=== PATIENT | female | born 1980 | race Caucasian/White ===

== ENCOUNTER 2017-08-05 08:36 | Emergency (ER) | payer MEDICAID ==
[2017-08-05 08:50] VITALS: RESP 18
[2017-08-05] MEDS ORDERED: Lidocaine 1%/Epinephrine 1:100000 30 ml vial IJ ONE (09:08)
[2017-08-05] MEDS ORDERED: Lidocaine 2% w Epi 1:100,000 Inj IJ ONE (09:17)
--- NOTE | 2017-08-05 09:28 | C.PDOC ---
History Of Present Illness 37 yr old female presents to the ER with complaints of swelling to the right groin. Patient notes she had a boil to the area 9 months ago and was treated with antibiotics and she self drained it. Patient states it has returned. Patient denies fever, vaginal sores or discharge, abdominal pain or dysuria. Time Seen by Provider: 08/05/17 08:47 Chief Complaint (Nursing): Abnormal Skin Integrity History Per: Patient History/Exam Limitations: no limitations Onset/Duration Of Symptoms: Days Quality Of Symptoms: Painful Past Medical History Reviewed: Historical Data, Nursing Documentation, Vital Signs Vital Signs: Last Vital Signs Temp 98 F 08/05/17 08:48 Pulse 74 08/05/17 08:48 Resp 18 08/05/17 08:48 BP 105/73 08/05/17 08:48 Pulse Ox 99 08/05/17 09:31 - Medical History PMH: Anxiety - [facility] Procedures INJECT STEROID (12/23/13) INJECT/INFUSE NEC (10/22/13) OTHER LOCAL DESTRUC SKIN (12/23/13) REMOVE INT FIX DEVIC NEC (12/23/13) Family History: States: No Known Family Hx - Social History Hx Tobacco Use: No Hx Alcohol Use: No Hx Substance Use: No - Immunization History Hx Tetanus Toxoid Vaccination: No Hx Influenza Vaccination: No Hx Pneumococcal Vaccination: No Review Of Systems Except As Marked, All Systems Reviewed And Found Negative. Constitutional: Negative for: Fever, Chills Genitourinary: Positive for: Other ((+) Area of swelling to the right groin.). Negative for: Dysuria Physical Exam - Physical Exam Appears: Non-toxic, No Acute Distress Skin: Warm, Dry, Other ((+) 2x1cm area of tenderness, erythema and induration with central fluctuance.) Head: Atraumatic, Normacephalic Eye(s): bilateral: Normal Inspection, EOMI Nose: Normal Oral Mucosa: Moist Lymphatic: No Inguinal Node Tenderness Chest: Symmetrical Respiratory: No Accessory Muscle Use Extremity: Normal ROM, No Swelling Neurological/Psych: Oriented x3, Normal Speech ED Course And Treatment O2 Sat by Pulse Oximetry: 99 (RA) Pulse Ox Interpretation: Normal Progress Note: Discussed wound care and to return in 2 days for wound check. - Incision & Drainage Of Abscess Anesthesia: Lidocaine 2%, With Epi Prep Used: Sterile Water, Betadine Procedure: Incised W/Scalpel Blade#: (11), Drained Pus, Irrigated Cavity W/ Saline, Probed To Break Up Loculations, Packed W/Gauze, Cultures Obtained And Sent To Lab Medical Decision Making Medical Decision Making: PLAN: * Clindamycin PO * Motrin PO Disposition - Disposition Disposition: HOME/ ROUTINE Disposition Time: 10:05 Condition: STABLE Additional Instructions: Return in 2 days for wound check. Prescriptions: Clindamycin [Cleocin] 300 mg PO Q6 #28 cap Instructions: Abscess Incision and Drainage (ED) Forms: [employer] (Mozambican) - Clinical Impression Clinical Impression: Incisional abscess - PA / CASE HARDENER / Resident Statement MD/DO has reviewed & agrees with the documentation as recorded. - Scribe Statement The provider has reviewed the documentation as recorded by the Scribe Ema Grimes All medical record entries made by the Scribe were at my direction and personally dictated by me. I have reviewed the chart and agree that the record accurately reflects my personal performance of the history, physical exam, medical decision making, and the department course for this patient. I have also personally directed, reviewed, and agree with the discharge instructions and disposition.
[2017-08-05 10:35] VITALS: BP 115/78; PULSE 63; TEMP 97.9; O2SAT 100
== END 2017-08-05 10:50 | disposition home or self-care (01) ==
LOC: C.ER 08:36
DX: L02.214 Cutaneous abscess of groin (principal)

== ENCOUNTER 2017-08-06 16:01 | Emergency (ER) | payer MEDICAID ==
[2017-08-06 16:06] VITALS: BP 129/84; PULSE 72; RESP 16; TEMP 98.2; O2SAT 99
--- NOTE | 2017-08-06 16:42 | C.PDOC ---
History Of Present Illness 37 yr old female presents to the ER for a wound check, s.p I&D done yesterday to the right groin area. Patient reports the wound continues to drain. Patient has not yet started her antibiotic. Patient denies fever, chills, nausea, vomiting, abdominal pain, diarrhea, back pain, weakness or numbness. Time Seen by Provider: 08/06/17 16:33 Chief Complaint (Nursing): Wound Check History Per: Patient History/Exam Limitations: no limitations Past Medical History Reviewed: Historical Data, Nursing Documentation, Vital Signs Vital Signs: Last Vital Signs Temp 98.2 F 08/06/17 16:04 Pulse 72 08/06/17 16:04 Resp 16 08/06/17 16:04 BP 129/84 08/06/17 16:04 Pulse Ox 99 08/06/17 18:16 - Medical History PMH: Anxiety - [facility] Procedures INJECT STEROID (12/23/13) INJECT/INFUSE NEC (10/22/13) OTHER LOCAL DESTRUC SKIN (12/23/13) REMOVE INT FIX DEVIC NEC (12/23/13) Family History: States: No Known Family Hx - Social History Hx Tobacco Use: No Hx Alcohol Use: No Hx Substance Use: No - Immunization History Hx Tetanus Toxoid Vaccination: No Hx Influenza Vaccination: No Hx Pneumococcal Vaccination: No Review Of Systems Except As Marked, All Systems Reviewed And Found Negative. Constitutional: Negative for: Fever, Chills Gastrointestinal: Negative for: Nausea, Vomiting, Abdominal Pain, Diarrhea Musculoskeletal: Negative for: Back Pain Neurological: Negative for: Weakness, Numbness Physical Exam - Physical Exam Appears: Non-toxic, No Acute Distress Skin: Warm, Dry, No Rash Oral Mucosa: Moist Chest: Symmetrical, No Tenderness Cardiovascular: Rhythm Regular, No Murmur Respiratory: Normal Breath Sounds, No Rales, No Rhonchi, No Stridor, No Wheezing Pelvic: Other ((+) Right groin, packing in place. Mild induration. No errythema. ) Neurological/Psych: Oriented x3, Normal Speech, Normal Motor ED Course And Treatment O2 Sat by Pulse Oximetry: 99 (RA) Pulse Ox Interpretation: Normal Disposition - Disposition Disposition: HOME/ ROUTINE Disposition Time: 16:40 Condition: GOOD Additional Instructions: Thank you for letting us take care of you today. Your provider was Dr. Wheeler. You were treated for a wound check. The emergency medical care you received today was directed at your acute symptoms. If you were prescribed any medication, please fill it and take as directed. It may take several days for your symptoms to resolve. Return to the Emergency Department if your symptoms worsen, do not improve, or if you have any other problems. Please contact your doctor or call one of the physicians/clinics you have been referred to that are listed on the Patient Visit Information form that is included in your discharge packet. Bring any paperwork you were given at discharge with you along with any medications you are taking to your follow up visit. Our treatment cannot replace ongoing medical care by a primary care provider (PCP) outside of the emergency department. Thank you for allowing the [facility] team to be part of your care today. START TAKING THE ANTIBIOTICS NOW. Apply warm compresses to the area as much as possible. Follow up tomorrow for a wound check. Instructions: Abscess (ED) Forms: [employer] (Austrian) - Clinical Impression Clinical Impression: Change of dressing - Scribe Statement The provider has reviewed the documentation as recorded by the Radhaibriya Grimes Provider Attestation: All medical record entries made by the Scribe were at my direction and personally dictated by me. I have reviewed the chart and agree that the record accurately reflects my personal performance of the history, physical exam, medical decision making, and the department course for this patient. I have also personally directed, reviewed, and agree with the discharge instructions and disposition.
== END 2017-08-06 16:51 | disposition home or self-care (01) ==
LOC: C.ER 16:01
DX: Z48.01 Encounter for change or removal of surgical wound dressing (principal)

== ENCOUNTER 2017-08-08 11:43 | Emergency (ER) | payer MEDICAID ==
[2017-08-08 12:07] VITALS: BMI 30.7
[2017-08-08 12:10] VITALS: BP 116/80; RESP 18; TEMP 98
--- NOTE | 2017-08-08 12:42 | C.PDOC ---
History Of Present Illness 37 y/o female presents to ED for wound check. Patient was seen at ED on 08/06/17 and had an I&D to right groin abscess. Patient states she was told to come in 2 days for check up. Patient denies fever, chills or any new symptoms at this time. Time Seen by Provider: 08/08/17 12:13 Chief Complaint (Nursing): Wound Check History Per: Patient History/Exam Limitations: no limitations Onset/Duration Of Symptoms: Days Ago Current Symptoms Are (Timing): Still Present Past Medical History Reviewed: Historical Data, Nursing Documentation, Vital Signs Vital Signs: Last Vital Signs Temp 98.0 F 08/08/17 12:07 Pulse 69 08/08/17 12:49 Resp 18 08/08/17 12:49 BP 116/80 08/08/17 12:07 Pulse Ox 100 08/12/17 04:48 - Medical History PMH: Anxiety Surgical History: No Surg Hx - [facility] Procedures INJECT STEROID (12/23/13) INJECT/INFUSE NEC (10/22/13) OTHER LOCAL DESTRUC SKIN (12/23/13) REMOVE INT FIX DEVIC NEC (12/23/13) Family History: States: No Known Family Hx - Social History Hx Tobacco Use: No Hx Alcohol Use: No Hx Substance Use: No - Immunization History Hx Tetanus Toxoid Vaccination: No Hx Influenza Vaccination: No Hx Pneumococcal Vaccination: No Review Of Systems Constitutional: Negative for: Fever, Chills Genitourinary: Negative for: Pelvic Pain Skin: Negative for: Rash Physical Exam - Physical Exam Additional Physical Exam Comments: Constitutional: No acute distress. WDWN. GI: Soft. Nontender. Nondistended. Normoactive bowel sounds. No rebound. No guarding. Skin: No rash. well healing wound with 1-2cm indurated area, No erythema or tenderness, scant discharge Neurologic: Alert, no focal deficit. ED Course And Treatment O2 Sat by Pulse Oximetry: 100 (RA) Pulse Ox Interpretation: Normal Medical Decision Making Medical Decision Making: Packing was removed, no drainage, advised to continue antibiotics Disposition Counseled Patient/Family Regarding: Diagnosis - Disposition Disposition: HOME/ ROUTINE Disposition Time: 12:40 Condition: IMPROVED Additional Instructions: Continue antibiotics. Apply warm compresses to wound; there still may be slight drainage. Return to ER for any worsening symptoms. Forms: [employer] (Ivorian), General Discharge Instructions - Clinical Impression Clinical Impression: Wound check, abscess - PA / AUTOMATIC LUMP MAKING MACHINE TENDER / Resident Statement MD/DO has reviewed & agrees with the documentation as recorded. - Scribe Statement The provider has reviewed the documentation as recorded by the Radhaibriya Auguste All medical record entries made by the Radhaibriya were at my direction and personally dictated by me. I have reviewed the chart and agree that the record accurately reflects my personal performance of the history, physical exam, medical decision making, and the department course for this patient. I have also personally directed, reviewed, and agree with the discharge instructions and disposition.
[2017-08-08 12:50] VITALS: PULSE 69
[2017-08-08 13:14] VITALS: O2SAT 100
== END 2017-08-08 12:50 | disposition home or self-care (01) ==
LOC: C.ER 11:43
DX: Z48.00 Encounter for change or removal of nonsurgical wound dressing (principal)

== ENCOUNTER 2018-02-03 16:31 | Emergency (ER) | payer MEDICAID ==
[2018-02-03 16:31] VITALS: BMI 30.7
[2018-02-03 16:47] VITALS: RESP 18
[2018-02-03 17:30] LABS: BASO % 0.4 % (0.0-2.0); EOS # 0.1 K/uL (0.0-0.7); EOS % 1.3 % (0.0-4.0); HEMOGLOBIN 12.8 g/dL (11.0-16.0); LYMPH # 1.1 K/uL (1.0-4.3); LYMPH % 14.6 % (20.0-40.0); MEAN CELL VOLUME 88.8 fL (81.0-99.0); MEAN CORPUSCULAR HEMOGLOBIN 30.6 pg (27.0-31.0); MEAN CORPUSCULAR HGB CONC 34.4 g/dL (33.0-37.0); MEAN PLATELET VOLUME 7.8 fL (7.2-11.7); MONO # 0.6 K/uL (0.0-0.8); MONO % 8.5 % (0.0-10.0); NEUT # 5.7 K/uL (1.8-7.0); NEUT % 75.2 % (50.0-75.0); NRBC % 0.1 % (0.0-2.0); RBC 4.19 Mil/uL (3.80-5.20); RED CELL DISTRIBUTION WIDTH 12.6 % (11.5-14.5); WHITE BLOOD COUNT 7.5 K/uL (4.8-10.8)
[2018-02-03 17:43] LABS: SQUAMOUS EPITHIAL 1 /hpf (0-5); URINE BILIRUBIN NEGATIVE (NEGATIVE); URINE BLOOD 1+ (NEGATIVE); URINE CLARITY Clear (Clear); URINE COLOR Yellow (YELLOW); URINE GLUCOSE (UA) NORMAL (Normal); URINE LEUKOCYTE ESTERASE TRACE Leu/uL (Negative); URINE PROTEIN NEGATIVE (NEGATIVE); URINE UROBILINOGEN NORMAL mg/dL (0.2-1.0)
--- NOTE | 2018-02-03 17:46 | C.PDOC ---
History Of Present Illness 37-year-old female, , presents to the emergency department with complaints of two day duration of vaginal spotting and mild cramping after intercourse. Denies nausea/vomiting, fever, chills, diarrhea. LMP 11/22/17. Patient did not have any recent ultrasound. Time Seen by Provider: 02/03/18 16:53 Chief Complaint (Nursing): Female Genitourinary History Per: Patient History/Exam Limitations: no limitations Past Medical History Reviewed: Historical Data, Nursing Documentation, Vital Signs Vital Signs: Last Vital Signs Temp 98 F 02/03/18 21:58 Pulse 73 02/03/18 21:58 Resp 18 02/03/18 21:58 BP 104/68 02/03/18 21:58 Pulse Ox 98 02/03/18 22:09 - Medical History PMH: Anxiety - [facility] Procedures INJECT STEROID (12/23/13) INJECT/INFUSE NEC (10/22/13) OTHER LOCAL DESTRUC SKIN (12/23/13) REMOVE INT FIX DEVIC NEC (12/23/13) Family History: States: No Known Family Hx - Social History Hx Tobacco Use: No Hx Alcohol Use: No Hx Substance Use: No - Immunization History Hx Tetanus Toxoid Vaccination: No Hx Influenza Vaccination: No Hx Pneumococcal Vaccination: No Review Of Systems Constitutional: Negative for: Fever, Chills Respiratory: Negative for: Shortness of Breath Gastrointestinal: Negative for: Nausea, Vomiting Genitourinary: Positive for: Vaginal Bleeding, Pelvic Pain. Negative for: Dysuria, Frequency, Hematuria Physical Exam - Physical Exam Appears: Non-toxic, No Acute Distress Skin: Normal Color, Warm, Dry, No Rash Head: Normacephalic Eye(s): bilateral: Normal Inspection, PERRL, EOMI Nose: Normal Neck: Normal ROM Cardiovascular: Rhythm Regular, No Murmur Respiratory: Normal Breath Sounds, No Accessory Muscle Use Gastrointestinal/Abdominal: Soft, No Tenderness Back: No Paraspinal Tenderness Extremity: Normal ROM Neurological/Psych: Oriented x3, Normal Speech ED Course And Treatment - Laboratory Results Result Diagrams: 02/03/18 17:27 02/03/18 17:27 O2 Sat by Pulse Oximetry: 98 (RA) Pulse Ox Interpretation: Normal - CT Scan/US US Other Rad Studies (CT/US): Read By Radiologist, Radiology Report Reviewed CT/US Interpretation: EXAM: US First Trimester, Transabdominal. CLINICAL HISTORY: 37 years old, female; Signs and symptoms; Lmp or gestational age (in weeks): 1-7-18; Other: Vag. spotting; ; Additional info: Vaginal spotting. TECHNIQUE: Real-time transabdominal obstetrical ultrasound of the maternal pelvis and a first trimester. with image documentation. COMPARISON: CT - ABD PELVIS W/O PO OR IV CONT 2015-11-17 18: 24. FINDINGS: Gestation: A gestational sac in the endometrial cavity has a mean sac diameter of 4.98 cm,. corresponding to a gestational age of 10 weeks 5 days. A pole within the gestational sac has a. mean crown-rump length of 3.63 cm, corresponding to a gestational age of 10 weeks 4 days. . cardiac activity is detected at 164 beats per minute. A yolk sac is unremarkable. There is no. subchorionic hemorrhage. Placenta/amniotic fluid: Cannot be adequately evaluated due to the early gestational age. Uterus/cervix : Unremarkable. There is a 1.4 x 1.1 x 1.7 cm posterior uterine body intramural. leiomyoma and is adjacent 2.0 x 1.4 x 2.1 cm posterior uterine body intramural leiomyoma. Ovaries: Unremarkable. No mass. Free fluid: No free fluid. IMPRESSION: Single live intrauterine of 10 weeks 5 days. Estimated date of delivery 08/27/2018. Two. uterine leiomyomata. Thank you for allowing us to participate in the care of your patient.Dictated and Authenticated by: Kimberly Covarrubias MD. 02/03/2018 9:57 PM Eastern Time ([place] & [place]) Medical Decision Making Medical Decision Making: Plan: * Blood work * UA * US * Urine culture Patient reports her blood type is A +. Patient will be D/C home and advised to follow up with OBGYN in 1 -2 days for further evaluation. Disposition Counseled Patient/Family Regarding: Studies Performed, Diagnosis, Need For Followup - Disposition Disposition: HOME/ ROUTINE Disposition Time: 22:11 Condition: STABLE Additional Instructions: follow up with rn navigator in 2 days call to make an appointment continue vitamin return to ER if symptoms worsens or progress Instructions: Threatened Miscarriage (DC), Bleeding With (DC) Forms: [employer] (Paraguayan), General Discharge Instructions - Clinical Impression Clinical Impression: Threatened miscarriage - Scribe Statement The provider has reviewed the documentation as recorded by the Scribe (Hang Dee) All medical record entries made by the Scribe were at my direction and personally dictated by me. I have reviewed the chart and agree that the record accurately reflects my personal performance of the history, physical exam, medical decision making, and the department course for this patient. I have also personally directed, reviewed, and agree with the discharge instructions and disposition.
[2018-02-03 17:53] LABS: ALB/GLOB RATIO 1.1 (1.0-2.1); ALBUMIN 3.8 g/dL (3.5-5.0); ALT/SGPT 42 U/L (9-52); AST/SGOT 42 U/L (14-36); BLOOD UREA NITROGEN 7 mg/dL (7-17); CALCIUM 8.9 mg/dl (8.6-10.4); GFR AFRICAN-AMERICAN > 60; GFR NON-AFRICAN AMERICAN > 60
[2018-02-03 21:59] VITALS: BP 104/68; PULSE 73; TEMP 98
[2018-02-03 22:00] VITALS: O2SAT 98
--- NOTE | 2018-02-04 16:30 | US ---
PROCEDURE: First trimester ultrasound HISTORY: vaginal spotting COMPARISON: None. TECHNIQUE: Standard protocol for this study/examination. FINDINGS: LMP: 11/22/2017 Prior examinations from the current : None TECHNIQUE: Real-time 2D imaging, duplex and color Doppler. FINDINGS: Cardiac activity: Present Rate: 163 BPM Measurements: Alvan rump length: 3.63 cm Gestational age based on CRL 10 weeks 4 days Gestational sac measurement 4.96 cm corresponds to gestational age 10 weeks 5 days Gestational age based on LMP 10 weeks 3 days KIMMY based on LMP: 08/29/2018 KIMMY based on biometry: 08/27/2018 Gestational concordance documented Yolk sac identified Uterus: Unremarkable. No Cervical abnormalities: Negative examination for cervical dilatation or effacement. Closed cervix measuring 3.24 cm Subchorionic hemorrhage: None UTERUS: 8.9 x 14.8 x 10.8 cm. Two small fibroids identified mid body of the uterus 1.5 x 2.1 cm and 1.1 x 1.4 cm. ADNEXA: Right: 1.9 x 2.7 cm. Normal Doppler arterial waveform documented. Left: 1.3 x 3.2 cm. Normal Doppler arterial waveform documented Fluid in the cul-de-sac: None IMPRESSION: 10 weeks 5 days live intrauterine gestation. Gestational concordance documented. Concordant results (preliminary interpretation) provided by [employer]. Procedure Completed: 21:26 Preliminary ([employer]Rad) Report: Dictated and Authenticated: 21:57 Final Interpretation: 16:28 February 04, 2018.
== END 2018-02-03 22:41 | disposition home or self-care (01) ==
LOC: C.ER 16:31
DX: O20.0 Threatened abortion (principal); Z3A.10 10 weeks gestation of pregnancy

== ENCOUNTER 2018-11-09 17:03 | Emergency (ER) | payer MEDICAID ==
[2018-11-09 17:03] VITALS: BMI 30.7
[2018-11-09 17:22] VITALS: BP 135/85; PULSE 90; RESP 16; TEMP 98.2; O2SAT 99
[2018-11-09] MEDS ORDERED: Enoxaparin 80 mg Syringe SC STA (18:38)
--- NOTE | 2018-11-09 18:47 | C.PDOC ---
History Of Present Illness 38 year old female presents to the emergency department with complaints of pain to her left leg, radiating up her medial thigh for the last three days. Patient reports a history of lupus. She denies being on control, and symptoms of chest pain and shortness of breath. Patient is concerned for DVT. Time Seen by Provider: 11/09/18 17:24 Chief Complaint (Nursing): Lower Extremity Problem/Injury History Per: Patient History/Exam Limitations: no limitations Onset/Duration Of Symptoms: Days (3) Current Symptoms Are (Timing): Still Present Past Medical History Reviewed: Historical Data, Nursing Documentation, Vital Signs Vital Signs: Last Vital Signs Temp 98.2 F 11/09/18 17:20 Pulse 90 11/09/18 17:20 Resp 16 11/09/18 17:20 BP 135/85 11/09/18 17:20 Pulse Ox 99 11/09/18 17:20 - Medical History PMH: Anxiety Denies: Diabetes, Hepatitis, HIV, HTN, Seizures, Sexually Transmitted Disease Surgical History: No Surg Hx - [facility] Procedures INJECT STEROID (12/23/13) INJECT/INFUSE NEC (10/22/13) OTHER LOCAL DESTRUC SKIN (12/23/13) REMOVE INT FIX DEVIC NEC (12/23/13) Family History: States: No Known Family Hx - Social History Hx Tobacco Use: No Hx Alcohol Use: No Hx Substance Use: No - Immunization History Hx Tetanus Toxoid Vaccination: No Hx Influenza Vaccination: No Hx Pneumococcal Vaccination: No ED Course And Treatment O2 Sat by Pulse Oximetry: 99 Disposition - Disposition
[2018-11-09] MEDS ORDERED: Enoxaparin 80 mg Syringe ONE (18:50)
--- NOTE | 2018-11-09 18:51 | C.PDOC ---
History Of Present Illness 38 year old female presents to the emergency department with complaints of pain to her right calf, radiating up to her medial thigh for the last three days. Patient reports a history of lupus. She denies being on control, and denies chest pain and shortness of breath. Patient is concerned for DVT. no recent surgery, no recent prolonged immobilization. Time Seen by Provider: 11/09/18 17:24 Chief Complaint (Nursing): Lower Extremity Problem/Injury History Per: Patient History/Exam Limitations: no limitations Onset/Duration Of Symptoms: Days (3) Current Symptoms Are (Timing): Still Present Past Medical History Vital Signs: Last Vital Signs Temp 98.2 F 11/09/18 17:20 Pulse 90 11/09/18 17:20 Resp 16 11/09/18 17:20 BP 135/85 11/09/18 17:20 Pulse Ox 99 11/09/18 17:20 - Medical History PMH: Anxiety Denies: Diabetes, Hepatitis, HIV, HTN, Seizures, Sexually Transmitted Disease Other PMH: Lupus - [facility] Procedures INJECT STEROID (12/23/13) INJECT/INFUSE NEC (10/22/13) OTHER LOCAL DESTRUC SKIN (12/23/13) REMOVE INT FIX DEVIC NEC (12/23/13) Family History: States: Unknown Family Hx - Social History Hx Tobacco Use: No Hx Alcohol Use: No Hx Substance Use: No - Immunization History Hx Tetanus Toxoid Vaccination: No Hx Influenza Vaccination: No Hx Pneumococcal Vaccination: No Review Of Systems Constitutional: Negative for: Fever, Chills Cardiovascular: Negative for: Chest Pain Respiratory: Negative for: Shortness of Breath Gastrointestinal: Negative for: Nausea, Vomiting Musculoskeletal: Positive for: Leg Pain (right) Physical Exam - Physical Exam Appears: Non-toxic, No Acute Distress Skin: Warm, Dry Head: Atraumatic, Normacephalic Eye(s): bilateral: Normal Inspection, PERRL, EOMI Neck: Normal, Supple Chest: Symmetrical, No Tenderness Cardiovascular: Rhythm Regular, No Murmur Respiratory: Normal Breath Sounds, No Rales, No Rhonchi, No Wheezing Gastrointestinal/Abdominal: Soft, No Tenderness Extremity: Normal ROM, Tenderness (right medial posterior thigh tenderness), Calf Tenderness (mild right posterior calf tenderness), No Swelling Pulses: Left Dorsalis Pedis: Normal, Right Dorsalis Pedis: Normal Neurological/Psych: Oriented x3, Normal Speech, Normal Cognition ED Course And Treatment O2 Sat by Pulse Oximetry: 99 (RA) Pulse Ox Interpretation: Normal Medical Decision Making Medical Decision Making: Plan: Lovenox 80mg SC here in ED since venous doppler unavailable and return to ER tomorrow for test. pt understands plan. Disposition Counseled Patient/Family Regarding: Diagnosis, Need For Followup - Disposition Disposition: HOME/ ROUTINE Disposition Time: 19:05 Condition: GOOD Additional Instructions: Return to ER tomorrow by 8 am for venous doppler exam of your right leg to evaluate for deep venous thrombosis. Return sooner to ED for any other concerns. 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 - Scribe Statement The provider has reviewed the documentation as recorded by the Scribe (Wang Wilkins) All medical record entries made by the Scribe were at my direction and personally dictated by me. I have reviewed the chart and agree that the record accurately reflects my personal performance of the history, physical exam, medical decision making, and the department course for this patient. I have also personally directed, reviewed, and agree with the discharge instructions and disposition.
== END 2018-11-09 19:24 | disposition home or self-care (01) ==
LOC: C.ER 17:03
DX: M79.604 Pain in right leg (principal); M32.9 Systemic lupus erythematosus, unspecified
CPT/HCPCS: 96372; 99283; J1650

== ENCOUNTER 2018-11-12 13:47 | Emergency (ER) | payer MEDICAID ==
[2018-11-12 13:55] VITALS: BMI 30.9
[2018-11-12 14:01] VITALS: BP 121/84; PULSE 70; RESP 18; TEMP 98.1; O2SAT 98
--- NOTE | 2018-11-12 14:31 | C.PDOC ---
History Of Present Illness 38 y/o female comes in for a follow up for venous doppler rule out DVT. Patient complains of persistent right inner thigh pain for the past 6 days. States she was seen on 11/09/18 for similar complaint and was advised to return on 11/10/18 for doppler but patient was unable to come due to childcare issues. Patient denies any new onset of chest pain, SOB, calf pain, or leg swelling. Patient has a history of chronic right ankle arthritis that has been worse than usual and she is now walking differently due to the ankle pain. Patient denies any trauma. FU FOR VENOUS DOPPLER RO DVT. PERSIST R INNER THIGH PAIN X 6 DAYS. SEEN 11/09 FOR SAME, ADVISED TO RETURN 11/10 FOR DOPPLER BUT PS UNABLE TO COME DUE TO CHILDCARE ISSUES. PAIN UNCH INITIAL, NO NEW ONSET CP, SOB, CALF PAIN, LEG SWELLING. PS HO CHRONIC R ANKLE ARTHRITIS WORSE THAN USUAL, NOW WALKING DIFFERENTLY DUE TO ANKLE PAIN. NO TRAUM EXAM NEG Time Seen by Provider: 11/12/18 14:03 Chief Complaint (Nursing): Lower Extremity Problem/Injury History Per: Patient History/Exam Limitations: no limitations Onset/Duration Of Symptoms: Days Current Symptoms Are (Timing): Still Present Past Medical History Reviewed: Historical Data, Nursing Documentation, Vital Signs Vital Signs: Last Vital Signs Temp 98.1 F 11/12/18 13:56 Pulse 70 11/12/18 13:56 Resp 18 11/12/18 13:56 BP 121/84 11/12/18 13:56 Pulse Ox 98 11/12/18 13:56 - Medical History PMH: Anxiety Denies: Diabetes, Hepatitis, HIV, HTN, Seizures, [facility] INJECT STEROID (12/23/13) INJECT/INFUSE NEC (10/22/13) OTHER LOCAL DESTRUC SKIN (12/23/13) REMOVE INT FIX DEVIC NEC (12/23/13) Family History: States: No Known Family Hx - Social History Hx Tobacco Use: No Hx Alcohol Use: No Hx Substance Use: No - Immunization History Hx Tetanus Toxoid Vaccination: No Hx Influenza Vaccination: No Hx Pneumococcal Vaccination: No Review Of Systems Except As Marked, All Systems Reviewed And Found Negative. Constitutional: Negative for: Fever Cardiovascular: Negative for: Chest Pain Respiratory: Negative for: Shortness of Breath Gastrointestinal: Negative for: Abdominal Pain Musculoskeletal: Positive for: Other (Right inner thigh pain; no leg swelling or calf pain) Physical Exam - Physical Exam Appears: Non-toxic, No Acute Distress Skin: Warm, Dry Head: Atraumatic, Normacephalic Eye(s): bilateral: Normal Inspection Oral Mucosa: Moist Neck: Supple Chest: Symmetrical Cardiovascular: Rhythm Regular, No Murmur Respiratory: Normal Breath Sounds, No Rales, No Rhonchi, No Wheezing Gastrointestinal/Abdominal: Soft, No Tenderness Extremity: Bilateral: Atraumatic, Normal Color And Temperature, Normal ROM Neurological/Psych: Oriented x3, Normal Speech ED Course And Treatment O2 Sat by Pulse Oximetry: 98 (RA) Pulse Ox Interpretation: Normal - CT Scan/US VENOUS DUPLEX Other Rad Studies (CT/US): Radiology Report Reviewed (NEG) Progress Note: Venous duplex scan of right lower extremity ordered. Disposition Counseled Patient/Family Regarding: Studies Performed, Diagnosis, Need For Followup - Disposition Referrals: YOUR,PMD [Other] Disposition: HOME/ ROUTINE Disposition Time: 15:50 Condition: GOOD Instructions: Muscle Strain (DC) Forms: [employer] (Bulgarian) - Clinical Impression Clinical Impression: Muscle strain of thigh - Scribe Statement The provider has reviewed the documentation as recorded by the Karla Johnson Provider Attestation: All medical record entries made by the Radhaibriya were at my direction and personally dictated by me. I have reviewed the chart and agree that the record accurately reflects my personal performance of the history, physical exam, medical decision making, and the department course for this patient. I have also personally directed, reviewed, and agree with the discharge instructions and disposition.
--- NOTE | 2018-11-13 15:09 | VASCLAB ---
Date of service: 11/12/2018 PROCEDURE: Right Lower Extremity Venous Duplex Exam. HISTORY: swelling PRIORS: None. TECHNIQUE: Right common femoral, femoral, popliteal and posterior tibial, peroneal and great saphenous veins were evaluated. Flow was assessed with color Doppler, compressibility, assessment of phasic flow and augmentation response. Report prepared by LINDY Byers, RVT FINDINGS: RIGHT: 1. Common Femoral Vein: 1.1. Compressibility - Fully compressible: Thrombus - None: Flow - Phasic: Augmentation -Normal: Reflux - None. 2. Femoral Vein: 2.1. Compressibility - Fully compressible: Thrombus - None: Flow - Phasic: Augmentation -Normal: Reflux - None. 3. Popliteal Vein: 3.1. Compressibility - Fully compressible: Thrombus - None: Flow - Phasic: Augmentation -Normal: Reflux - None. 4. Posterior Tibial Vein: 4.1. Compressibility - Fully compressible: Thrombus - None: Flow - Phasic: Augmentation -Normal: Reflux - None. 5. Peroneal Vein: 5.1. Compressibility - Fully compressible: Thrombus - None: Flow - Phasic: Augmentation -Normal: Reflux - None. 6. Great Saphenous Vein: 6.1. Compressibility - Fully compressible: Thrombus -None: Flow - Phasic: Augmentation - Normal: Reflux - None. OTHER FINDINGS: IMPRESSION: No evidence of deep or superficial vein thrombosis of the right lower extremity with excellent venous flow. Normal valve function noted of the right side. Normal venous flow noted in the left common femoral vein.
== END 2018-11-12 16:01 | disposition home or self-care (01) ==
LOC: C.ER 13:47
DX: S76.911A Strain of unspecified muscles, fascia and tendons at thigh level, right thigh, initial encounter (principal); X58.XXXA Exposure to other specified factors, initial encounter